=== PATIENT | female | born 1955 | race Caucasian/White ===

== ENCOUNTER → 2016-11-23 | Day surgery (SDC) | payer OTHER ==
[~2016-11-23] VITALS: Ht 165.1 cm; Wt 77.1 kg
[~2016-11-23] MED LIST: ALPH-E400 IU PO; BACTRIM DS 8001 TAB PO; BACTROBAN OINT22 GM PO; CALCIUM/VITAMIN1 CAP PO; CENTRUM SILVER1 TA1 PO; CENTRUM1 TAB PO; CIPRO500 MG PO; CIPROFLOXACIN500 MG PO; DIFLUCAN150 MG PO; E400400 IU PO; EPA/GLA1 SGL PO; FISH OIL 500MG500 MG PO; FISH OIL500 MG; FLAGYL500 MG PO; FLEXERIL10 MG PO; FLONASE0.05 MG/AC NS; KEFLEX500 MG PO; LIDEX 0.05% GEL60 GM PO; MEDROL DOSEPAK4 MG PO; MOTRIN800 MG PO; NAPRELAN500 MG PO; NKHM; NORCO 325 MG-51 TAB PO; OXYBUTYNIN CHLOR5 M1 PO; PANTOPRAZOLE SO40 MG PO; PRILOSEC40 MG PO; TRAMADOL HCL50 MG PO; ULTRAM50 MG PO; VICODIN 5/500 505 MG PO; VITAMIN D2000 IU PO; VOLTAREN50 M1 PO; ZANTAC 150150 MG PO; ZANTAC150 MG PO
--- NOTE | ~2016-11-23 | O ---
[place], [place] OPERATIVE NOTE NAME: KRYSTAL SOTO UNIT #: [id number] ROOM: DOCTOR: KARISHMA DUNN MD BIRTHDATE: [birth year] DOS: GASTROENDOSCOPIC REPORT HISTORY OF PRESENT ILLNESS: A 61-year-old patient who has presented with chief complaint of epigastric distress, dyspepsia, dysphagia, reflux symptomatology. ALLERGIES: No known medications. FAMILY HISTORY: Noncontributory. PAST SURGICAL HISTORY: Breast implant, hysterectomy, skin cancer. PAST MEDICAL HISTORY: Gastroesophageal reflux. PROCEDURE: Today's procedure part of investigation is panendoscopy plus balloon dilation of esophagus. PREMEDICATION: Versed and Diprivan. SCOPE: Olympus forward viewing gastroscope Q10 video. REPORT: After putting the patient in the left lateral position and after application of lubricant to the scope, the scope was introduced. Thereafter, under direct visualization, I advanced through the length of esophagus without difficulty. Benign esophageal stricture in upper esophagus was noticed. Gastric pouch was entered. Gastritis seen. Duodenal bulb, second and third part within normal limits. Balloon size 20 was utilized and orally extracted, highest resistance at upper esophagus was experienced. The patient extubated, tolerated procedure well. IMPRESSION: 1. Benign esophageal stricture, status post balloon dilation. 2. Reflux gastritis. PLAN AND DISCUSSION: This patient has been on pantoprazole 40 mg daily and ranitidine 150 mg 1 at bedtime. We are going to discontinue ranitidine 150 mg. We are going to use Gaviscon Extra Strength 1 tablet at bedtime just before bedtime or about and elevation of the head of the bed 6 inches all time, avoiding solid food ingestion 5 hours prior to retiring and clinical reassessment. The patient was advised to see you in the office and p.r.n. visit with us in [facility]. I thank you very much again for your kind referral. [place], [place] OPERATIVE NOTE NAME: KRYSTAL SOTO UNIT #: [id number] ROOM: DOCTOR: KARISHMA DUNN MD BIRTHDATE: [birth year] KARISHMA DUNN MD CM:OPRECORD:OPERATIVE NOTE [id number] KARISHMA DUNN MD 11/23/16 1833 interface
[2016-11-23 13:20] VITALS: BP 100/54
[2016-11-23 13:35] VITALS: BP 111/61
[2016-11-23 13:50] VITALS: BP 116/76
== END | disposition home or self-care (01) ==
LOC: SDC 11-19 10:15
DX: K22.2 Esophageal obstruction (principal); K29.70 Gastritis, unspecified, without bleeding; K21.9 Gastro-esophageal reflux disease without esophagitis; Z87.891 Personal history of nicotine dependence; F41.9 Anxiety disorder, unspecified; F32.9 Major depressive disorder, single episode, unspecified; Z87.01 Personal history of pneumonia (recurrent); Z90.710 Acquired absence of both cervix and uterus; Z98.51 Tubal ligation status; Z85.828 Personal history of other malignant neoplasm of skin; Z82.49 Family history of ischemic heart disease and other diseases of the circulatory system

== ENCOUNTER → 2017-01-10 | Outpatient (CLI) | payer OTHER | END | disposition home or self-care (01) | LOC: RAD 17:28 | DX: M19.011 Primary osteoarthritis, right shoulder (principal); M19.012 Primary osteoarthritis, left shoulder; M25.511 Pain in right shoulder; M25.512 Pain in left shoulder; Z91.81 History of falling ==

== ENCOUNTER → 2017-03-10 | Emergency (ER) | payer OTHER ==
[~2017-03-10] VITALS: Ht 165.1 cm; Wt 77.1 kg
[2017-03-10 08:41] VITALS: BP 129/77
[2017-03-10 09:19] LABS: BASO % 0.4 % (0.0-1.0); EOS # 0.2 10*3/uL (0.0-0.4); EOS % 2.1 % (1.0-4.0); HEMATOCRIT 38.4 % (37.0-47.0); HEMOGLOBIN 12.4 g/dl (12.0-16.0); LYMPH % 26.1 % (27.0-41.0); MEAN CELL VOLUME 95.5 fl (81.0-99.0); MEAN CORPUSCULAR HGB 30.8 pg (27.0-31.0); MEAN CORPUSCULAR HGB CONC 32.3 g/dl (33.0-37.0); MEAN PLATELET VOLUME 10.6 fl (9.6-12.3); MONO # 0.5 10*3/uL (0.1-1.0); MONO % 6.6 % (3.0-9.0); NEUT # 4.9 10*3/uL (2.3-7.9); NEUT % 64.7 % (47.0-73.0); PLATELET COUNT AUTOMATED 229 10*3/uL (130-400); RED BLOOD COUNT 4.02 10*6/uL (4.10-5.10); RED CELL DISTRI WIDTH 12.5 % (0-14.5); WHITE BLOOD COUNT 7.5 10*3/uL (4.8-10.8)
[2017-03-10 09:31] LABS: INTERNATIONAL NORM RATIO 0.9 (2.0-3.5)
[2017-03-10 09:32] LABS: ALBUMIN 3.8 gm/dl (3.1-4.5); ALKALINE PHOSPHATASE 56 U/L (45-117); BILIRUBIN, TOTAL 0.4 mg/dl (0.2-1.0); BUN 11 mg/dl (7-24); CARBON DIOXIDE 31 mmol/L (21-32); CHLORIDE 107 mmol/L (98-107); EST GLOM FILT AFRICAN AMERICAN > 60 ml/min; GLUCOSE 100 mg/dL (65-99); SGOT/AST 18 IU/L (3-35); SGPT/ALT 31 U/L (12-78); SODIUM 146 mmol/L (136-145); TOTAL PROTEIN 6.9 gm/dL (6.4-8.2)
== END ==
LOC: ED 08:27
PROVIDERS: Emergency Medicine
DX: R19.5 Other fecal abnormalities (principal); R51 Headache; M54.2 Cervicalgia; Z88.1 Allergy status to other antibiotic agents; Z79.899 Other long term (current) drug therapy

== ENCOUNTER 2017-03-18 17:31 | Emergency (ER) | payer OTHER ==
[~2017-03-18] VITALS: Ht 165.1 cm; Wt 76.7 kg
[2017-03-18 19:07] VITALS: BP 130/95
[2017-03-18] MEDS ORDERED: NAPROSYN500 MG PO (21:44)
== END 2017-03-18 21:27 | disposition home or self-care (01) ==
LOC: ED 17:31
DX: S20.412A Abrasion of left back wall of thorax, initial encounter (principal); Z88.1 Allergy status to other antibiotic agents; W17.89XA Other fall from one level to another, initial encounter; Y93.89 Activity, other specified; Y92.9 Unspecified place or not applicable; Y99.9 Unspecified external cause status

== ENCOUNTER 2018-03-29 11:22 | Emergency (ER) | payer OTHER ==
[~2018-03-29] VITALS: Wt 83.9 kg
[~2018-03-29 11:22] MED LIST changes: +NAPROSYN500 MG PO
[2018-03-29 12:11] LABS: BASO % 0.4 % (0.0-1.0); EOS # 0.1 10*3/uL (0.0-0.4); EOS % 1.8 % (1.0-4.0); HEMOGLOBIN 12.4 g/dl (12.0-16.0); LYMPH # 1.5 10*3/uL (1.3-4.4); LYMPH % 28.4 % (27.0-41.0); MEAN CORPUSCULAR HGB CONC 32.6 g/dl (33.0-37.0); MEAN PLATELET VOLUME 10.3 fl (9.6-12.3); MONO # 0.5 10*3/uL (0.1-1.0); MONO % 9.4 % (3.0-9.0); NEUT # 3.2 10*3/uL (2.3-7.9); NEUT % 59.8 % (47.0-73.0); PLATELET COUNT AUTOMATED 230 10*3/uL (130-400); RED CELL DISTRI WIDTH 12.5 % (0-14.5); WHITE BLOOD COUNT 5.4 10*3/uL (4.8-10.8)
[2018-03-29 12:28] LABS: ALBUMIN 3.9 gm/dl (3.1-4.5); ALKALINE PHOSPHATASE 63 U/L (45-117); BUN 16 mg/dl (7-24); CHLORIDE 106 mmol/L (98-107); POTASSIUM 3.9 mmol/L (3.5-5.1); SGOT/AST 16 IU/L (3-35); SGPT/ALT 27 U/L (12-78); SODIUM 142 mmol/L (136-145)
[2018-03-29 12:30] LABS: TROPONIN I < 0.015 ng/ml (<0.045)
[2018-03-29 13:10] VITALS: BP 108/75
[2018-03-29] MEDS ORDERED: NYSTATIN CREAM15 GM T (13:19)
[2018-03-29] MEDS ORDERED: TESSALON PERLE100 MG PO (13:19)
== END 2018-03-29 13:25 | disposition home or self-care (01) ==
LOC: ED 11:22
PROVIDERS: Emergency Medicine
DX: R05 Cough (principal); B37.2 Candidiasis of skin and nail; J02.9 Acute pharyngitis, unspecified; M79.606 Pain in leg, unspecified; Z88.1 Allergy status to other antibiotic agents

== ENCOUNTER 2018-04-26 10:25 | Emergency (ER) | payer MEDICARE ==
[~2018-04-26] VITALS: Ht 165.1 cm; Wt 79.4 kg
[~2018-04-26 10:25] MED LIST changes: +NYSTATIN CREAM15 GM T; +TESSALON PERLE100 MG PO
[2018-04-26 10:28] VITALS: BP 111/69
[2018-04-26] MEDS ORDERED: TYLENOL325 M1 PO (11:55)
== END 2018-04-26 12:24 | disposition home or self-care (01) ==
LOC: ED 10:25
DX: S80.812A Abrasion, left lower leg, initial encounter (principal); M25.562 Pain in left knee; Z88.1 Allergy status to other antibiotic agents; Z79.899 Other long term (current) drug therapy; W08.XXXA Fall from other furniture, initial encounter; Y93.89 Activity, other specified; Y92.89 Other specified places as the place of occurrence of the external cause; Y99.8 Other external cause status

== ENCOUNTER → 2018-09-03 | Outpatient (CLI) | payer MEDICARE ==
[~2018-09-03] MED LIST changes: +TYLENOL325 M1 PO
--- NOTE | ~2018-09-03 | EKG ---
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
== END | disposition home or self-care (01) ==
LOC: CARD 13:57
DX: Z01.818 Encounter for other preprocedural examination (principal); I49.9 Cardiac arrhythmia, unspecified; Z79.899 Other long term (current) drug therapy

== ENCOUNTER 2018-11-08 13:21 | Emergency (ER) | payer MEDICARE ==
[~2018-11-08] VITALS: Ht 165.1 cm; Wt 83.9 kg
[2018-11-08 13:23] VITALS: BP 111/60
[2018-11-08 13:46] LABS: BILIRUBIN NEGATIVE (NEGATIVE); BLOOD NEGATIVE (NEGATIVE); CLARITY CLEAR (CLEAR); COLOR STRAW (YELLOW); GLUCOSE NEGATIVE (NEGATIVE); KETONE NEGATIVE (NEGATIVE); LEUKO ESTERASE TRACE (NEGATIVE); NITRITE NEGATIVE (NEGATIVE); SPECIFIC GRAVITY <= 1.005 (1.005-1.030); UROBILINOGEN 0.2 E.U./dl (0.2-1.0)
[2018-11-08 13:50] LABS: BASO % 0.6 % (0.0-1.0); EOS # 0.2 10*3/uL (0.0-0.4); EOS % 2.9 % (1.0-4.0); HEMATOCRIT 38.7 % (37.0-47.0); HEMOGLOBIN 12.6 g/dl (12.0-16.0); LYMPH # 2.5 10*3/uL (1.3-4.4); LYMPH % 38.7 % (27.0-41.0); MEAN CELL VOLUME 95.6 fl (81.0-99.0); MEAN CORPUSCULAR HGB 31.1 pg (27.0-31.0); MEAN CORPUSCULAR HGB CONC 32.6 g/dl (33.0-37.0); MEAN PLATELET VOLUME 10.2 fl (9.6-12.3); MONO # 0.6 10*3/uL (0.1-1.0); MONO % 8.6 % (3.0-9.0); NEUT # 3.2 10*3/uL (2.3-7.9); PLATELET COUNT AUTOMATED 289 10*3/uL (130-400); RED BLOOD COUNT 4.05 10*6/uL (4.10-5.10); RED CELL DISTRI WIDTH 12.9 % (0-14.5); WHITE BLOOD COUNT 6.5 10*3/uL (4.8-10.8)
[2018-11-08 13:58] LABS: EPITHELIAL CELLS 0-2; WBC 0-2 wbc/hpf (0-5)
[2018-11-08 14:09] LABS: ALBUMIN 3.7 gm/dl (3.1-4.5); ALKALINE PHOSPHATASE 86 U/L (45-117); BUN 14 mg/dl (7-24); CHLORIDE 106 mmol/L (98-107); CREATININE 0.75 mg/dL (0.55-1.02); POTASSIUM 4.1 mmol/L (3.5-5.1); SGOT/AST 24 IU/L (3-35); SGPT/ALT 51 U/L (12-78); SODIUM 142 mmol/L (136-145); TOTAL PROTEIN 7.2 gm/dL (6.4-8.2)
[2018-11-08] MEDS ORDERED: TYLENOL325 M1 PO (14:21)
== END 2018-11-08 14:23 | disposition home or self-care (01) ==
LOC: ED 13:21
PROVIDERS: Emergency Medicine
DX: R10.9 Unspecified abdominal pain (principal); M79.89 Other specified soft tissue disorders; E66.9 Obesity, unspecified; Z88.1 Allergy status to other antibiotic agents; Z79.899 Other long term (current) drug therapy; Z90.710 Acquired absence of both cervix and uterus; X58.XXXA Exposure to other specified factors, initial encounter; Y93.89 Activity, other specified; Y92.89 Other specified places as the place of occurrence of the external cause; Y99.8 Other external cause status

== ENCOUNTER → 2018-12-01 | Outpatient (CLI) | payer MEDICARE ==
--- NOTE | ~2018-12-01 | EKG ---
[place], [place] ELECTROCARDIOGRAM REPORT NAME: KRYSTAL SOTO UNIT #: [id number] ROOM: DOCTOR: EPIPHANY DRAFT REPORT BIRTHDATE: [birth year] [facility] Test Date: 2018-12-01 Test Time: 16:51:42 Pat Name: KRYSTAL SOTO Department: Room: Gender: F [employer] Agent: : 1955 Requested By: DELVIS HANSEN Order Number: [id number] Reading MD: Measurements Intervals [place] Rate: 50 P: 59 ND: 202 QRS: 81 QRSD: 76 T: 47 QT: 390 QTc: 356 Interpretive Statements Sinus arrhythmia Borderline right axis deviation Compared to ECG 09/03/2018 14:09:52 No significant changes CM:EKGRPT:ELECTROCARDIOGRAM REPORT [id number] DELVIS HANSEN EPIPHANY DRAFT REPORT DELVIS HANSEN
== END | disposition home or self-care (01) ==
LOC: CARD 15:51
DX: R07.89 Other chest pain (principal); R05 Cough; R09.89 Other specified symptoms and signs involving the circulatory and respiratory systems; R10.13 Epigastric pain; R60.9 Edema, unspecified; R06.02 Shortness of breath; R60.0 Localized edema

== ENCOUNTER 2019-08-04 14:35 | Emergency (ER) | payer OTHER ==
[~2019-08-04] VITALS: Ht 165.1 cm; Wt 74.8 kg
[2019-08-04 15:50] LABS: BASO % 0.6 % (0.0-1.0); EOS # 0.1 10*3/uL (0.0-0.4); EOS % 1.9 % (1.0-4.0); HEMATOCRIT 38.7 % (37.0-47.0); HEMOGLOBIN 12.7 g/dl (12.0-16.0); LYMPH # 1.7 10*3/uL (1.3-4.4); LYMPH % 35.9 % (27.0-41.0); MEAN CELL VOLUME 94.2 fl (81.0-99.0); MEAN CORPUSCULAR HGB 30.9 pg (27.0-31.0); MEAN CORPUSCULAR HGB CONC 32.8 g/dl (33.0-37.0); MEAN PLATELET VOLUME 10.8 fl (9.6-12.3); MONO # 0.4 10*3/uL (0.1-1.0); MONO % 7.6 % (3.0-9.0); NEUT # 2.6 10*3/uL (2.3-7.9); NEUT % 53.8 % (47.0-73.0); PLATELET COUNT AUTOMATED 258 10*3/uL (130-400); RED BLOOD COUNT 4.11 10*6/uL (4.10-5.10); RED CELL DISTRI WIDTH 12.5 % (0-14.5); WHITE BLOOD COUNT 4.9 10*3/uL (4.8-10.8)
[2019-08-04 15:59] LABS: ALKALINE PHOSPHATASE 52 U/L (45-117); BUN 14 mg/dl (7-24); CHLORIDE 104 mmol/L (98-107); CREATININE 0.79 mg/dL (0.55-1.02); POTASSIUM 3.6 mmol/L (3.5-5.1); SGOT/AST 19 IU/L (3-35); SGPT/ALT 33 U/L (12-78); SODIUM 139 mmol/L (136-145); TOTAL PROTEIN 6.8 gm/dL (6.4-8.2)
[2019-08-04] MEDS ORDERED: PROAIR HFA8.5 GM INH (16:29)
[2019-08-04] MEDS ORDERED: MEDROL DOSEPAK4 MG PO (16:29)
[2019-08-04] MEDS ORDERED: ZITHROMAX250 MG PO (16:29)
[2019-08-04 16:30] VITALS: BP 104/70
== END 2019-08-04 16:45 | disposition home or self-care (01) ==
LOC: ED 14:35
PROVIDERS: Nurse Practitioner Family
DX: J20.9 Acute bronchitis, unspecified (principal); J44.0 Chronic obstructive pulmonary disease with (acute) lower respiratory infection; Z88.1 Allergy status to other antibiotic agents; Z79.899 Other long term (current) drug therapy; Z90.710 Acquired absence of both cervix and uterus

== ENCOUNTER 2020-01-06 12:28 | Emergency (ER) | payer OTHER ==
[~2020-01-06] VITALS: Ht 165.1 cm; Wt 77.1 kg
[~2020-01-06 12:28] MED LIST changes: +PROAIR HFA8.5 GM INH; +ZITHROMAX250 MG PO
[2020-01-06 12:35] VITALS: BP 124/45
== END 2020-01-06 15:04 | disposition home or self-care (01) ==
LOC: ED 12:28
DX: S63.501A Unspecified sprain of right wrist, initial encounter (principal); K21.9 Gastro-esophageal reflux disease without esophagitis; F41.9 Anxiety disorder, unspecified; F32.9 Major depressive disorder, single episode, unspecified; Z90.710 Acquired absence of both cervix and uterus; Z88.8 Allergy status to other drugs, medicaments and biological substances; Z79.899 Other long term (current) drug therapy; W19.XXXA Unspecified fall, initial encounter; Y93.89 Activity, other specified; Y92.89 Other specified places as the place of occurrence of the external cause; Y99.8 Other external cause status

== ENCOUNTER 2020-01-13 16:40 | Emergency (ER) | payer OTHER ==
[~2020-01-13] VITALS: Ht 165.1 cm; Wt 77.1 kg
[2020-01-13 17:04] LABS: BASO % 0.5 % (0.0-1.0); EOS # 0.2 10*3/uL (0.0-0.4); EOS % 2.8 % (1.0-4.0); HEMATOCRIT 36.7 % (37.0-47.0); HEMOGLOBIN 11.7 g/dl (12.0-16.0); LYMPH # 2.7 10*3/uL (1.3-4.4); LYMPH % 41.2 % (27.0-41.0); MEAN CELL VOLUME 97.1 fl (81.0-99.0); MEAN CORPUSCULAR HGB CONC 31.9 g/dl (33.0-37.0); MEAN PLATELET VOLUME 10.3 fl (9.6-12.3); MONO # 0.6 10*3/uL (0.1-1.0); NEUT % 46.3 % (47.0-73.0); PLATELET COUNT AUTOMATED 234 10*3/uL (130-400); RED BLOOD COUNT 3.78 10*6/uL (4.10-5.10); RED CELL DISTRI WIDTH 12.7 % (0-14.5); WHITE BLOOD COUNT 6.5 10*3/uL (4.8-10.8)
[2020-01-13 17:14] VITALS: BP 122/71
[2020-01-13 17:21] LABS: ALBUMIN 3.4 gm/dl (3.1-4.5); ALKALINE PHOSPHATASE 72 U/L (45-117); BUN 17 mg/dl (7-24); CHLORIDE 108 mmol/L (98-107); CREATININE 0.78 mg/dL (0.55-1.02); SGOT/AST 16 IU/L (3-35); SGPT/ALT 30 U/L (12-78); SODIUM 140 mmol/L (136-145); TOTAL PROTEIN 6.6 gm/dL (6.4-8.2)
[2020-01-13 17:23] LABS: TROPONIN I < 0.015 ng/ml (<0.045)
== END 2020-01-13 20:40 | disposition home or self-care (01) ==
LOC: ED 16:40
PROVIDERS: Emergency Medicine
DX: R07.89 Other chest pain (principal); R06.02 Shortness of breath; K21.9 Gastro-esophageal reflux disease without esophagitis; F41.9 Anxiety disorder, unspecified; F32.9 Major depressive disorder, single episode, unspecified; Z88.8 Allergy status to other drugs, medicaments and biological substances; Z79.899 Other long term (current) drug therapy; Z79.2 Long term (current) use of antibiotics; Z90.710 Acquired absence of both cervix and uterus

== ENCOUNTER → 2020-08-31 | Outpatient (CLI) | payer OTHER ==
[2020-08-31 18:12] LABS: BASO % 0.5 % (0.0-1.0); BILIRUBIN Negative (Negative); BLOOD Negative (Negative); CLARITY Clear (Clear); COLOR Yellow (Yellow); EOS # 0.1 10*3/uL (0.0-0.4); EOS % 1.7 % (1.0-4.0); GLUCOSE Negative (Negative); HEMATOCRIT 39.8 % (37.0-47.0); KETONE Negative (Negative); LEUKO ESTERASE Negative (Negative); LYMPH # 2.6 10*3/uL (1.3-4.4); LYMPH % 41.2 % (27.0-41.0); MEAN CELL VOLUME 97.3 fl (81.0-99.0); MEAN CORPUSCULAR HGB 30.6 pg (27.0-31.0); MEAN CORPUSCULAR HGB CONC 31.4 g/dl (33.0-37.0); MEAN PLATELET VOLUME 10.1 fl (9.6-12.3); MONO # 0.4 10*3/uL (0.1-1.0); MONO % 6.9 % (3.0-9.0); NEUT # 3.2 10*3/uL (2.3-7.9); NEUT % 49.5 % (47.0-73.0); NITRITE Negative (Negative); PH 6.5 (4.5-8.0); PLATELET COUNT AUTOMATED 270 10*3/uL (130-400); RED BLOOD COUNT 4.09 10*6/uL (4.10-5.10); RED CELL DISTRI WIDTH 12.4 % (0-14.5); UROBILINOGEN 0.2 E.U./dl (0.0-1.0); WHITE BLOOD COUNT 6.4 10*3/uL (4.8-10.8)
[2020-08-31 18:20] LABS: BACTERIA TRACE; EPITHELIAL CELLS 0-2; RBC 0-2 rbc/hpf (0-2); WBC 0-2 wbc/hpf (0-5)
[2020-08-31 18:27] LABS: ALBUMIN 3.8 gm/dl (3.1-4.5); ALKALINE PHOSPHATASE 73 U/L (45-117); BUN 14 mg/dl (7-24); CHLORIDE 108 mmol/L (98-107); POTASSIUM 3.4 mmol/L (3.5-5.1); SGOT/AST 19 IU/L (3-35); SGPT/ALT 30 U/L (12-78); SODIUM 143 mmol/L (136-145); TOTAL PROTEIN 7.2 gm/dL (6.4-8.2)
== END | disposition home or self-care (01) ==
LOC: LAB 17:28
PROVIDERS: ATTEND Nurse Practitioner Family
DX: R05 Cough (principal); R60.9 Edema, unspecified; R63.5 Abnormal weight gain; N64.4 Mastodynia; Z12.31 Encounter for screening mammogram for malignant neoplasm of breast

== ENCOUNTER → 2020-09-08 | Outpatient (CLI) | payer OTHER | END | disposition home or self-care (01) | LOC: MAMMO 10:00 | PROVIDERS: ATTEND Nurse Practitioner Family | DX: N64.59 Other signs and symptoms in breast (principal); Z12.39 Encounter for other screening for malignant neoplasm of breast; Z98.82 Breast implant status ==

== ENCOUNTER 2021-01-31 07:47 | Emergency (ER) | payer OTHER ==
[~2021-01-31] VITALS: Ht 165.1 cm; Wt 72.6 kg
[2021-01-31 07:54] VITALS: BP 112/57
[2021-01-31 08:18] LABS: BILIRUBIN Negative (Negative); BLOOD Negative (Negative); CLARITY Clear (Clear); COLOR Yellow (Yellow); GLUCOSE Negative (Negative); KETONE Negative (Negative); LEUKO ESTERASE 3+ (Negative); NITRITE Negative (Negative); PH 6.5 (4.5-8.0); SPECIFIC GRAVITY <= 1.005 (1.001-1.030); UROBILINOGEN 0.2 E.U./dl (0.0-1.0)
[2021-01-31 08:34] LABS: EPITHELIAL CELLS 0-2
[2021-01-31 08:35] LABS: BACTERIA TRACE; RBC 0-2 rbc/hpf (0-2); WBC 51-100 wbc/hpf (0-5)
[2021-01-31] MEDS ORDERED: SEPTDS PO ×2 (09:26)
== END 2021-01-31 09:27 | disposition home or self-care (01) ==
LOC: ED 07:47
PROVIDERS: Emergency Medicine
DX: N39.0 Urinary tract infection, site not specified (principal); K21.9 Gastro-esophageal reflux disease without esophagitis; F41.9 Anxiety disorder, unspecified; F32.9 Major depressive disorder, single episode, unspecified; F17.200 Nicotine dependence, unspecified, uncomplicated; Z88.8 Allergy status to other drugs, medicaments and biological substances; Z79.899 Other long term (current) drug therapy; Z98.890 Other specified postprocedural states; Z98.51 Tubal ligation status; Z90.711 Acquired absence of uterus with remaining cervical stump

== ENCOUNTER 2021-02-04 17:05 | Emergency (ER) | payer OTHER ==
[~2021-02-04] VITALS: Ht 165.1 cm; Wt 72.6 kg
[~2021-02-04 17:05] MED LIST changes: +SEPTDS PO
[2021-02-04 17:16] VITALS: BP 111/67
[2021-02-04 17:35] LABS: BILIRUBIN Negative (Negative); BLOOD 2+ (Negative); CLARITY Turbid (Clear); COLOR Yellow (Yellow); GLUCOSE Negative (Negative); KETONE Trace (Negative); LEUKO ESTERASE 3+ (Negative); NITRITE Positive (Negative)
[2021-02-04 17:39] LABS: BACTERIA 4+; WBC TNTC wbc/hpf (0-5)
[2021-02-04] MEDS ORDERED: PYRIDIUM200 M1 PO (17:41)
[2021-02-04] MEDS ORDERED: MACROBID100 M1 PO (17:41)
== END 2021-02-04 17:47 | disposition home or self-care (01) ==
LOC: ED 17:05
PROVIDERS: Emergency Medicine
DX: N39.0 Urinary tract infection, site not specified (principal); Z79.899 Other long term (current) drug therapy; Z98.890 Other specified postprocedural states; Z98.51 Tubal ligation status; Z90.711 Acquired absence of uterus with remaining cervical stump

== ENCOUNTER 2021-03-26 03:38 | Emergency (ER) | payer OTHER ==
[~2021-03-26] VITALS: Ht 157.4 cm; Wt 75.3 kg
[~2021-03-26 03:38] MED LIST changes: +MACROBID100 M1 PO; +PYRIDIUM200 M1 PO
[2021-03-26 04:02] VITALS: BP 125/85
[2021-03-26 04:10] LABS: BASO % 0.5 % (0.0-1.0); EOS # 0.2 10*3/uL (0.0-0.4); HEMATOCRIT 40.9 % (37.0-47.0); LYMPH % 23.5 % (27.0-41.0); MEAN CELL VOLUME 97.1 fl (81.0-99.0); MEAN CORPUSCULAR HGB 31.1 pg (27.0-31.0); MEAN PLATELET VOLUME 10.5 fl (9.6-12.3); MONO # 0.6 10*3/uL (0.1-1.0); MONO % 7.3 % (3.0-9.0); NEUT # 5.7 10*3/uL (2.3-7.9); NEUT % 66.5 % (47.0-73.0); PLATELET COUNT AUTOMATED 256 10*3/uL (130-400); RED BLOOD COUNT 4.21 10*6/uL (4.10-5.10); RED CELL DISTRI WIDTH 13.6 % (0-14.5); WHITE BLOOD COUNT 8.6 10*3/uL (4.8-10.8)
[2021-03-26 04:20] LABS: BILIRUBIN Negative (Negative); BLOOD Negative (Negative); CLARITY Clear (Clear); COLOR Yellow (Yellow); GLUCOSE Negative (Negative); KETONE Trace (Negative); LEUKO ESTERASE Trace (Negative); NITRITE Negative (Negative); SPECIFIC GRAVITY 1.025 (1.001-1.030)
[2021-03-26 04:26] LABS: ALBUMIN 3.7 gm/dl (3.1-4.5); ALKALINE PHOSPHATASE 81 U/L (45-117); BUN 22 mg/dl (7-24); CHLORIDE 105 mmol/L (98-107); CREATININE 0.93 mg/dL (0.55-1.02); POTASSIUM 3.4 mmol/L (3.5-5.1); SGOT/AST 14 IU/L (3-35); SGPT/ALT 28 U/L (12-78); SODIUM 138 mmol/L (136-145); TOTAL PROTEIN 7.3 gm/dL (6.4-8.2)
== END 2021-03-26 04:54 | disposition home or self-care (01) ==
LOC: ED 03:38
PROVIDERS: Internal Medicine
DX: E87.6 Hypokalemia (principal); M54.9 Dorsalgia, unspecified; R10.9 Unspecified abdominal pain; R82.998 Other abnormal findings in urine; Z88.1 Allergy status to other antibiotic agents; Z79.2 Long term (current) use of antibiotics; Z79.899 Other long term (current) drug therapy; Z98.51 Tubal ligation status; Z90.711 Acquired absence of uterus with remaining cervical stump; Z98.890 Other specified postprocedural states; Z98.82 Breast implant status

== ENCOUNTER → 2021-05-25 | Outpatient (CLI) | payer OTHER | END | disposition home or self-care (01) | LOC: CARD 00:13 | PROVIDERS: ATTEND Internal Medicine Cardiovascular Disease | DX: R07.89 Other chest pain (principal); R01.1 Cardiac murmur, unspecified ==

== ENCOUNTER 2022-07-15 22:51 | Emergency (ER) | payer OTHER ==
[2022-07-15 23:05] VITALS: BP 128/84
== END 2022-07-15 23:38 | disposition home or self-care (01) ==
LOC: ED 22:51
DX: S01.01XA Laceration without foreign body of scalp, initial encounter (principal); Z88.1 Allergy status to other antibiotic agents; Z79.899 Other long term (current) drug therapy; Z90.710 Acquired absence of both cervix and uterus; Z98.51 Tubal ligation status; Z98.890 Other specified postprocedural states; X58.XXXA Exposure to other specified factors, initial encounter; Y93.89 Activity, other specified; Y92.89 Other specified places as the place of occurrence of the external cause; Y99.8 Other external cause status

== ENCOUNTER 2022-08-24 16:03 | Emergency (ER) | payer OTHER ==
[~2022-08-24] VITALS: Ht 165.1 cm; Wt 91.6 kg
[2022-08-24 18:59] VITALS: BP 127/78
[2022-08-24 19:16] LABS: BASO % 0.4 % (0.0-1.0); EOS # 0.1 10*3/uL (0.0-0.4); EOS % 2.8 % (1.0-4.0); HEMATOCRIT 38.2 % (37.0-47.0); LYMPH # 2.1 10*3/uL (1.3-4.4); LYMPH % 41.9 % (27.0-41.0); MEAN CELL VOLUME 96.5 fl (81.0-99.0); MEAN CORPUSCULAR HGB 30.8 pg (27.0-31.0); MEAN CORPUSCULAR HGB CONC 31.9 g/dl (33.0-37.0); MEAN PLATELET VOLUME 10.3 fl (9.6-12.3); MONO # 0.4 10*3/uL (0.1-1.0); MONO % 8.4 % (3.0-9.0); NEUT # 2.3 10*3/uL (2.3-7.9); NEUT % 46.3 % (47.0-73.0); PLATELET COUNT AUTOMATED 268 10*3/uL (130-400); RED BLOOD COUNT 3.96 10*6/uL (4.10-5.10); RED CELL DISTRI WIDTH 12.7 % (0-14.5)
[2022-08-24 19:31] LABS: ALKALINE PHOSPHATASE 55 U/L (45-117); BUN 10 mg/dl (7-24); CHLORIDE 110 mmol/L (98-107); CREATININE 0.75 mg/dL (0.55-1.02); LIPASE 126 U/L (73-393); POTASSIUM 3.5 mmol/L (3.5-5.1); SGOT/AST 17 IU/L (3-35); SGPT/ALT 32 U/L (12-78); SODIUM 144 mmol/L (136-145); TOTAL PROTEIN 6.6 gm/dL (6.4-8.2)
[2022-08-24 19:36] LABS: BILIRUBIN Negative (Negative); BLOOD Negative (Negative); CLARITY Clear (Clear); COLOR Yellow (Yellow); GLUCOSE Negative (Negative); KETONE Negative (Negative); LEUKO ESTERASE Trace (Negative); NITRITE Negative (Negative); PH 6.5 (4.5-8.0)
[2022-08-24 19:45] LABS: BACTERIA 1+; RBC 0-2 rbc/hpf (0-2)
[2022-08-24] MEDS ORDERED: MACROBID100 M1 PO (21:54)
== END 2022-08-24 22:10 | disposition home or self-care (01) ==
LOC: ED 16:03
PROVIDERS: Physician Assistant
DX: N39.0 Urinary tract infection, site not specified (principal); Z88.1 Allergy status to other antibiotic agents; Z79.899 Other long term (current) drug therapy; Z90.710 Acquired absence of both cervix and uterus; Z98.51 Tubal ligation status; Z98.890 Other specified postprocedural states

== ENCOUNTER 2022-10-24 10:52 | Emergency (ER) | payer OTHER ==
[~2022-10-24] VITALS: Ht 165.1 cm; Wt 95.7 kg
[2022-10-24 11:42] VITALS: BP 124/84
[2022-10-24 13:33] LABS: BASO % 0.4 % (0.0-1.0); EOS # 0.1 10*3/uL (0.0-0.4); EOS % 1.7 % (1.0-4.0); HEMATOCRIT 39.4 % (37.0-47.0); LYMPH # 2.3 10*3/uL (1.3-4.4); LYMPH % 32.8 % (27.0-41.0); MEAN CELL VOLUME 95.2 fl (81.0-99.0); MEAN CORPUSCULAR HGB 30.9 pg (27.0-31.0); MEAN CORPUSCULAR HGB CONC 32.5 g/dl (33.0-37.0); MEAN PLATELET VOLUME 10.3 fl (9.6-12.3); MONO # 0.6 10*3/uL (0.1-1.0); NEUT # 3.9 10*3/uL (2.3-7.9); NEUT % 56.8 % (47.0-73.0); PLATELET COUNT AUTOMATED 296 10*3/uL (130-400); RED BLOOD COUNT 4.14 10*6/uL (4.10-5.10); RED CELL DISTRI WIDTH 12.7 % (0-14.5); WHITE BLOOD COUNT 6.9 10*3/uL (4.8-10.8)
[2022-10-24 13:48] LABS: ALKALINE PHOSPHATASE 71 U/L (46-116); BUN 11 mg/dl (9-23); CHLORIDE 102 mmol/L (98-107); CREATININE 0.69 mg/dL (0.55-1.02); POTASSIUM 3.4 mmol/L (3.4-5.1); SGPT/ALT 30 U/L (10-49); TOTAL PROTEIN 6.9 gm/dL (6.0-8.0)
[2022-10-24] MEDS ORDERED: XARE15TA PO (17:18)
[2022-10-24] MEDS ORDERED: XARE20MG PO (17:18)
== END 2022-10-24 17:31 | disposition home or self-care (01) ==
LOC: ED 10:52
PROVIDERS: Physician Assistant
DX: I82.411 Acute embolism and thrombosis of right femoral vein (principal); Z88.8 Allergy status to other drugs, medicaments and biological substances; Z90.710 Acquired absence of both cervix and uterus; Z98.51 Tubal ligation status; Z98.890 Other specified postprocedural states

== ENCOUNTER → 2022-11-13 | Outpatient (CLI) | payer OTHER ==
[~2022-11-13] MED LIST changes: +XARE15TA PO; +XARE20MG PO
== END | disposition home or self-care (01) ==
LOC: CARD 09:59
PROVIDERS: ATTEND Family Medicine
DX: I47.1 Supraventricular tachycardia (principal)

== ENCOUNTER → 2022-12-26 | Outpatient (CLI) | payer OTHER ==
[~2022-12-26] MED LIST changes: +OMNICEF300 MG PO
[2022-12-27 15:06] LABS: ANTICARDIOLIPIN AB, IGG, QN <9 GPL U/mL (0-14); ANTICARDIOLIPIN AB, IGM, QN <9 MPL U/mL (0-12); CARDIOLIPIN AB IGA <9 APL U/mL (0-11)
[2022-12-28 06:08] LABS: BETA-2 GLYCOPROTEIN I AB,IGA <9 (0-25); BETA-2 GLYCOPROTEIN I AB,IGG <9 (0-20); BETA-2 GLYCOPROTEIN I AB,IGM <9 (0-32)
== END | disposition home or self-care (01) ==
LOC: LAB 10:23
PROVIDERS: ATTEND Internal Medicine Hematology & Oncology
DX: I82.409 Acute embolism and thrombosis of unspecified deep veins of unspecified lower extremity (principal)

== ENCOUNTER 2022-12-31 09:54 | Emergency (ER) | payer OTHER ==
[~2022-12-31] VITALS: Wt 96.2 kg
[~2022-12-31 09:54] MED LIST changes: -OMNICEF300 MG PO
[2022-12-31 10:08] VITALS: BP 139/70
[2022-12-31 11:55] LABS: BILIRUBIN Negative (Negative); BLOOD Negative (Negative); CLARITY Clear (Clear); COLOR Yellow (Yellow); GLUCOSE Negative (Negative); KETONE Negative (Negative); LEUKO ESTERASE Negative (Negative); NITRITE Negative (Negative); PH 7.5 (4.5-8.0); UROBILINOGEN 0.2 E.U./dl (0.0-1.0)
[2022-12-31 12:06] LABS: RBC 0-2 rbc/hpf (0-2); WBC 0-2 wbc/hpf (0-5)
[2022-12-31 12:37] LABS: ALKALINE PHOSPHATASE 71 U/L (46-116); BUN 11 mg/dl (9-23); CHLORIDE 107 mmol/L (98-107); LIPASE 36 U/L (12-53); POTASSIUM 3.8 mmol/L (3.4-5.1); SGPT/ALT 14 U/L (10-49); TOTAL PROTEIN 7.3 gm/dL (6.0-8.0)
[2022-12-31] MEDS ORDERED: OMNICEF300 MG PO (13:08)
== END 2022-12-31 13:16 | disposition home or self-care (01) ==
LOC: ED 09:54
PROVIDERS: Emergency Medicine
DX: R59.0 Localized enlarged lymph nodes (principal); Z88.1 Allergy status to other antibiotic agents; Z79.899 Other long term (current) drug therapy; Z90.710 Acquired absence of both cervix and uterus; Z98.51 Tubal ligation status

== ENCOUNTER → 2023-02-11 | Outpatient (CLI) | payer OTHER ==
[~2023-02-11] MED LIST changes: +OMNICEF300 MG PO
== END | disposition home or self-care (01) ==
LOC: US 01:45
PROVIDERS: ATTEND Nurse Practitioner Primary Care
DX: M79.89 Other specified soft tissue disorders (principal); I82.411 Acute embolism and thrombosis of right femoral vein

== ENCOUNTER 2024-08-17 23:34 | Emergency (ER) | payer OTHER ==
[~2024-08-17] VITALS: Ht 160 cm; Wt 93.0 kg
[2024-08-17 23:45] VITALS: BP 93/31
[2024-08-18 00:39] LABS: BASO % 0.3 % (0.0-1.0); EOS # 0.1 10*3/uL (0.0-0.4); EOS % 1.5 % (1.0-4.0); LYMPH # 1.4 10*3/uL (1.3-4.4); LYMPH % 19.7 % (27.0-41.0); MEAN CELL VOLUME 95.9 fl (81.0-99.0); MEAN CORPUSCULAR HGB 30.4 pg (27.0-31.0); MEAN CORPUSCULAR HGB CONC 31.7 g/dl (33.0-37.0); MEAN PLATELET VOLUME 9.9 fl (9.6-12.3); MONO # 0.7 10*3/uL (0.1-1.0); MONO % 9.8 % (3.0-9.0); NEUT % 68.6 % (47.0-73.0); PLATELET COUNT AUTOMATED 303 10*3/uL (130-400); RED BLOOD COUNT 3.65 10*6/uL (4.10-5.10); RED CELL DISTRI WIDTH 12.8 % (0-14.5); WHITE BLOOD COUNT 7.3 10*3/uL (4.8-10.8)
[2024-08-18 00:57] LABS: BUN 18 mg/dl (9-23); CHLORIDE 105 mmol/L (98-107)
[2024-08-18] MEDS ORDERED: CEPHALEXIN500 M1 PO (01:29)
[2024-08-18] MEDS ORDERED: CEPHALEXIN 500 MG CAP PO ONE (01:30)
== END 2024-08-18 02:00 | disposition home or self-care (01) ==
LOC: ED 23:34
PROVIDERS: Internal Medicine
DX: L03.116 Cellulitis of left lower limb (principal); K21.9 Gastro-esophageal reflux disease without esophagitis; F41.9 Anxiety disorder, unspecified; F32.A Depression, unspecified; Z88.1 Allergy status to other antibiotic agents; Z90.710 Acquired absence of both cervix and uterus; Z98.890 Other specified postprocedural states

== ENCOUNTER 2024-09-04 07:33 | Emergency (ER) | payer OTHER ==
[~2024-09-04] VITALS: Ht 165.1 cm; Wt 92.1 kg
[~2024-09-04 07:33] MED LIST changes: +CEPHALEXIN500 M1 PO
[2024-09-04 08:02] VITALS: BP 124/69
[2024-09-04] MEDS ORDERED: AMOX-CLAV 875-1 EACH PO (08:04)
[2024-09-04] MEDS ORDERED: MYRBETRIQ50 M1 PO (08:08)
[2024-09-04] MEDS ORDERED: VITAMIN C1000 M5 PO (08:08)
[2024-09-04] MEDS ORDERED: VITAMIN D31250 MC1 PO (08:09)
[2024-09-04 09:09] LABS: BILIRUBIN Negative (Negative); BLOOD Negative (Negative); CLARITY Clear (Clear); COLOR Orange (Yellow); GLUCOSE Negative (Negative); KETONE Negative (Negative); LEUKO ESTERASE Negative (Negative); NITRITE Negative (Negative); PH 5.5 (4.5-8.0); SPECIFIC GRAVITY 1.015 (1.001-1.030)
[2024-09-04] MEDS ORDERED: METRONIDAZOLE500 M1 PO (09:58)
[2024-09-04] MEDS ORDERED: BENZONATATE100 M1 PO (09:58)
== END 2024-09-04 10:21 | disposition home or self-care (01) ==
LOC: ED 07:33
PROVIDERS: Emergency Medicine
DX: R19.7 Diarrhea, unspecified (principal); R05.9 Cough, unspecified; J44.9 Chronic obstructive pulmonary disease, unspecified; K21.9 Gastro-esophageal reflux disease without esophagitis; F41.9 Anxiety disorder, unspecified; F32.A Depression, unspecified; Z88.1 Allergy status to other antibiotic agents; Z98.890 Other specified postprocedural states; Z90.710 Acquired absence of both cervix and uterus

== ENCOUNTER 2025-01-05 12:03 | Emergency (ER) | payer OTHER ==
[~2025-01-05] VITALS: Ht 165.1 cm; Wt 97.5 kg
[~2025-01-05 12:03] MED LIST changes: +AMOX-CLAV 875-1 EACH PO; +BENZONATATE100 M1 PO; +METRONIDAZOLE500 M1 PO; +MYRBETRIQ50 M1 PO; +VITAMIN C1000 M5 PO; +VITAMIN D31250 MC1 PO
[2025-01-05 12:16] VITALS: BP 115/63
[2025-01-05 13:23] LABS: BASO % 0.3 % (0.0-1.0); EOS % 0.6 % (1.0-4.0); HEMATOCRIT 34.6 % (37.0-47.0); MEAN CELL VOLUME 102.4 fl (81.0-99.0); MEAN CORPUSCULAR HGB 33.1 pg (27.0-31.0); MEAN CORPUSCULAR HGB CONC 32.4 g/dl (33.0-37.0); MEAN PLATELET VOLUME 9.2 fl (9.6-12.3); MONO # 0.5 10*3/uL (0.1-1.0); MONO % 14.6 % (3.0-9.0); NEUT # 2.2 10*3/uL (2.3-7.9); NEUT % 70.6 % (47.0-73.0); PLATELET COUNT AUTOMATED 155 10*3/uL (130-400); RED BLOOD COUNT 3.38 10*6/uL (4.10-5.10); RED CELL DISTRI WIDTH 18.9 % (0-14.5); WHITE BLOOD COUNT 3.1 10*3/uL (4.8-10.8)
[2025-01-05 13:41] LABS: ACT PARTIAL THROMBO TIME 25.7 SECONDS (20.0-32.1)
[2025-01-05 13:47] LABS: ALKALINE PHOSPHATASE 96 U/L (46-116); BUN 11 mg/dl (9-23); CHLORIDE 104 mmol/L (98-107); LDH 230 U/L (120-246); LIPASE 29 U/L (12-53); POTASSIUM 3.9 mmol/L (3.4-5.1); SGPT/ALT 80 U/L (5-49); TOTAL PROTEIN 6.7 gm/dL (6.0-8.0)
[2025-01-05] MEDS ORDERED: IOHEXOL 350 MG/ML 100 ML VIAL IV ONE (13:50)
[2025-01-05] MEDS ORDERED: SODIUM CHLORIDE 0.9% 100 ML BAG IV ONE (13:50)
[2025-01-05] MEDS ORDERED: APIXABAN 5 MG TAB PO SCH (13:53)
[2025-01-05] MEDS ORDERED: ELIQUIS5 M1 PO (15:14)
[2025-01-05] MEDS ORDERED: BENZONATATE100 M1 PO (15:34)
== END 2025-01-05 15:25 | disposition home or self-care (01) ==
LOC: ED 12:03
PROVIDERS: Emergency Medicine
DX: I82.441 Acute embolism and thrombosis of right tibial vein (principal); K21.9 Gastro-esophageal reflux disease without esophagitis; F41.9 Anxiety disorder, unspecified; F32.A Depression, unspecified; Z88.1 Allergy status to other antibiotic agents; Z98.890 Other specified postprocedural states; Z90.710 Acquired absence of both cervix and uterus